=== PATIENT | female | born 1965 | race Caucasian/White ===

== ENCOUNTER 2018-09-07 15:43 | Outpatient (CLI) | payer OTHER, SELFPAY ==
--- NOTE | 2018-09-07 16:05 | DI.RAD_ITS ---
SYMPTOM/DIAGNOSIS: EVALUATE FOR BONY ABNORMALITY, NONTRAUMATIC CERVICAL RADICULOPATHY, M54.12 CERVICAL SPINE: Seven views were obtained. There is a moderate cervical kyphosis. There is mild disc space narrowing at C 4-5 and moderate disc space narrowing at C 5-6 and C 6-7. There are prominent hypertrophic changes involving the facet joints and vertebral endplates in the lower cervical region. Neural foramina not ideally evaluated but appear grossly well maintained. No other significant bony abnormality is seen. CONCLUSION: DJD of the mid to lower cervical spine as described above.
== END 2018-09-07 16:03 ==
PROVIDERS: PCP Nurse Practitioner Family; Visit Provider Nurse Practitioner Family
DX: M47.22 Other spondylosis with radiculopathy, cervical region (principal); M54.12 Radiculopathy, cervical region
CPT/HCPCS: 72050

== ENCOUNTER 2019-05-07 16:52 | Outpatient (REF) | payer OTHER, SELFPAY ==
[2019-05-07 18:31] LABS: ALT 12 U/L (12-78); AST 10 U/L (15-37); Albumin 3.7 g/dL (3.4-5.0); Alkaline Phosphatase 92 U/L (46-116); Anion Gap 9.7 mmol/L (3-11); BUN 20 mg/dL (7-18); Bilirubin, Total 0.1 mg/dL (0.2-1.0); CO2 28.3 mmol/L (21.0-32.0); CREATININE 0.79 mg/dL (0.55-1.02); Calcium 9.6 mg/dL (8.5-10.1); Chloride 105 mmol/L (98-107); Glucose 94 mg/dL (70-100); Magnesium 1.9 mg/dL (1.8-2.4); Potassium 4.2 mmol/L (3.5-5.1); Sodium 143 mmol/L (136-145); Total Protein 6.9 g/dL (6.4-8.2)
== END 2019-05-07 17:12 ==
LOC: LBO 16:52
PROVIDERS: Family Medicine; PCP Nurse Practitioner Family; Visit Provider Nurse Practitioner Family
DX: G44.009 Cluster headache syndrome, unspecified, not intractable (principal)
CPT/HCPCS: 80053; 85652; 83735

== ENCOUNTER 2019-05-08 10:34 | Outpatient (CLI) | payer OTHER, SELFPAY ==
[2019-05-08 12:18] LABS: ESR 76 MM/HR (0-30)
== END 2019-05-08 10:54 ==
PROVIDERS: PCP Nurse Practitioner Family; Visit Provider Family Medicine
DX: G44.009 Cluster headache syndrome, unspecified, not intractable (principal)
CPT/HCPCS: 36415; 85652

== ENCOUNTER 2019-05-13 01:06 | Outpatient (CLI) | payer OTHER, SELFPAY ==
--- NOTE | 2019-05-13 12:53 | DI.CT_ITS ---
SYMPTOM/DIAGNOSIS: CHANGE IN HEADACHE PATTERN, ? MASS, CLUSTER HEADACHE, 644.[address]: There are no prior comparison exams. No intracranial hemorrhage, mass or infarct is seen. There are no abnormal areas of enhancement post contrast. The ventricles are normal in size. The orbits are unremarkable as visualized. The sinuses and mastoid air cells appear clear. IMPRESSION: Negative head CT.
[2019-05-13] MEDS: Omnipaque 350 MG/ML 100 ML BTL IV (13:40)
== END 2019-05-13 01:26 ==
PROVIDERS: PCP Nurse Practitioner Family; Visit Provider Family Medicine
DX: G44.009 Cluster headache syndrome, unspecified, not intractable (principal)
CPT/HCPCS: 70470; J3490

== ENCOUNTER 2019-09-27 18:57 | Emergency (ER) | payer OTHER, SELFPAY ==
[2019-09-27 19:01] VITALS: BP 134/89; PULSE 117; RESP 16; TEMP 36.7; O2SAT 95
[2019-09-27] MEDS: Normal Saline 1,000 ML 1000 ML IV (20:03)
[2019-09-27 20:18] LABS: Abs Immature Grans 0.02 k/cumm (0.0-0.09); Absolute Basophil Count 0.04 k/cumm (0.0-0.2); Absolute Eosinophil Count 0.08 k/cumm (0.0-0.7); Absolute Lymphocyte Count 2.69 k/cumm (1.2-3.4); Absolute Monocyte Count 1.24 k/cumm (0.11-0.7); Absolute Neutrophil Count 8.05 k/cumm (1.2-6.7); Basophils % 0.3; Eosinophils % 0.7; HCT 47.6 % (36.0-46.0); HGB 16.1 g/dL (12.0-15.5); Immature Grans % 0.2; Lymphocytes % 22.2; Mean Corp. HGB Concentration 33.8 g/dL (32.0-36.0); Mean Corpuscular Hemoglobin 30.4 pg (27.0-33.0); Mean Corpuscular Volume 89.8 fL (80-95); Mean Platelet Volume 10.1 fL (8.0-11.0); Monocytes % 10.2; Neutrophils % 66.4; Platelet Count 311 x1000/uL (130-400); RBC Distribution Width 14.6 % (11.7-14.6); White Blood Cell Count 12.13 k/cumm (4.4-10.8)
[2019-09-27 20:32] LABS: ALT 21 U/L (14-59); AST 12 U/L (15-37); Albumin 3.8 g/dL (3.4-5.0); Alkaline Phosphatase 82 U/L (46-116); Anion Gap 10.5 mmol/L (3-11); BUN 13 mg/dL (7-18); Bilirubin, Total 0.2 mg/dL (0.2-1.0); CO2 25.5 mmol/L (21.0-32.0); CREATININE 0.79 mg/dL (0.55-1.02); Calcium 9.7 mg/dL (8.5-10.1); Chloride 103 mmol/L (98-107); Glucose 114 mg/dL (70-100); Lipase 69 U/L (73-393); Sodium 139 mmol/L (136-145); Total Protein 8.1 g/dL (6.4-8.2)
[2019-09-27] MEDS: Normal Saline Flush 10 ML SYR IVP (20:43)
[2019-09-27] MEDS: Omnipaque 350 MG/ML 100 ML BTL IJ (20:44)
--- NOTE | 2019-09-27 20:45 | DI.CT_ITS ---
EXAM: CT ABDOMEN PELVIS W CLINICAL HISTORY: constipation, hx volvulus and divertic TECHNIQUE: After IV and without oral contrast COMPARISON: RENAL COLIC WO CONTRAST from 09/10/2015 FINDINGS: There are diverticula seen in the descending and sigmoid colon. There is inflammation in the distal descending colon and wall thickening and stranding in the surrounding fat, consistent with diverticu litis. The sigmoid is redundant. There is inflammation around the apex of the mid sigmoid colon. N o abscess, free air or free fluid is seen. There is increased stool seen in the right side of the co angelina. There is no evidence of bowel dilatation. The appendix appears normal. The lung bases are clear. Small liver cyst is seen. The gallbladder shows a Phrygian cap. There is no biliary dilatation or gallbladder wall thickening. The spleen, adrenals and kidneys are unremar kable. The pancreas is somewhat atrophic. The aorta shows mild calcification and is normal in diame ter. Degenerative disc changes are seen at L5-S1. IMPRESSION: Uncomplicated diverticulitis of the lower descending as well as mid sigmoid colon.
--- NOTE | 2019-09-27 21:08 | DI.VRAD_ITS ---
PROCEDURE INFORMATION: Exam: CT Abdomen And Pelvis With Contrast Exam date and time: 09/27/2019 8:36 PM Clinical history: 54 years old, female; Constipation. HX volvulous and diverticulitis; Prior surgery TECHNIQUE: Imaging protocol: Computed tomography of the abdomen and pelvis with intravenous contrast. Contrast material: OMNIPAQUE 350; Contrast volume: 100 ml; Contrast route: IV 20G RAC; COMPARISON: CT ABD PELVIS WITH CONTRAST 07/11/2014 9:11 PM FINDINGS: Lungs: No acute infiltrate in either lung base. Liver: 6 mm cyst within the liver adjacent to the gallbladder fossa, otherwise normal liver. Gallbladder and bile ducts: Normal. No calcified stones. No ductal dilation. Pancreas: Normal. No ductal dilation. Spleen: Normal. No splenomegaly. Adrenals: Normal. No mass. Kidneys and ureters: Normal. No hydronephrosis. Stomach and bowel: Mural thickening of the junction of the lower descending colon / proximal sigmoid colon and also the mid sigmoid colon (coronal images 34-46). Associated scattered diverticula and infiltration / stranding of the pericolonic fat consistent with acute diverticulitis. No constantino abscess or perforation. No generalized ileus or bowel obstruction. Appendix: Normal appendix. Intraperitoneal space: Unremarkable. No free air. No significant fluid collection. Vasculature: Unremarkable. No abdominal aortic aneurysm. Lymph nodes: Unremarkable. No enlarged lymph nodes. Bladder: Unremarkable as visualized. Reproductive: Status post hysterectomy. Bones/joints: Unremarkable. No acute fracture. Soft tissues: Small fat-containing umbilical hernia. IMPRESSION: Two focal areas of acute diverticulitis - one in the mid-sigmoid colon region and the other at the junction of the lower descending colon / proximal sigmoid colon. No associated abscess or perforation. Dictated and Authenticated by: Jr Garcia MD. Ordering:AFLONZO Hilliard MD
[2019-09-27 21:20] LABS: Bilirubin Negative (Negative); Blood Moderate (Negative); Clarity Clear (Clear); Glucose Negative (Negative); Ketones Negative (Negative); Leukocyte Esterase Negative (Negative); Nitrite Negative (Negative); Urobilinogen 0.2 EU/dL (Up TO 0.2)
[2019-09-27 21:36] LABS: Bacteria Negative HPF (Negative); C & S Indicated? No; Casts Negative LPF (Negative); Crystals Negative HPF (Negative); Epithelial Cells Negative HPF (Negative); Mucus Negative (Negative); Other Cells Negative (Negative); WBC Negative HPF (0-5)
[2019-09-27 22:09] VITALS: BP 131/81; PULSE 98; RESP 18; TEMP 36.9; O2SAT 99
--- NOTE | 2019-09-28 00:12 | ED.GENADUL_ITS ---
Discharge Plan Disposition Patient Disposition: HOME Condition: Stable Discharge Details Chief Complaint: Abd Prob Clinical Impression: Diverticulitis Primary Care Provider: Shellie Ott ED Provider: Arminda Luis Home Meds and New Rx's Prescriptions: New metronidazole [Flagyl] 500 mg tablet 500 mg PO TID Qty: 30 RF: 0 ciprofloxacin HCl [Cipro] 500 mg tablet 500 mg PO BID Qty: 20 RF: 0 No Action cyclobenzaprine 10 mg tablet 10 mg PO DAILY PRN (Reason: muscle spasm) Qty: 30 RF: 0 albuterol sulfate 90 mcg/actuation HFA aerosol inhaler 1 - 2 puff IH Q4H PRN (Reason: shortness of breath or wheezing) Qty: 1 RF: 0 rizatriptan [Maxalt-MANAGEMENT AND BUDGET ANALYST] 10 mg tablet,disintegrating See Rx Instructions PO .COMPLEX Qty: 20 RF: 0 (DME) Oxygen Tank See Dose Instructions .ROUTE .MEDSUPPLY Qty: 1 RF: 0 ibuprofen 200 MG tablet 4 tab PO DAILY PRNRF: 0 triamcinolone acetonide 15 GM cream 80 gm Topical PRN Qty: 1 RF: 1 rizatriptan [Maxalt] 10 mg tablet 10 mg PO PRN Qty: 25 RF: 4 Hold Instructions: Home Medication placed on hold at Doctor's office Discharge Instructions Instructions: Diverticulitis (ED) Additional Instructions: Clear fluids for the next 2 to 3 days as discussed. Advance diet as tolerated. Rest activities as tolerated. Use antibiotic as prescribed. Your CT scan does show active diverticulitis at this time but no identified complication. Follow-up promptly with your primary care doctor for reevaluation. 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 Patient began Cipro Flagyl medication regimen which in the last 3 days has entirely relieve the pain she is experienced in the left lower quadrant however she is now having resulting constipation which significantly concerns her. Patient has a very regular bowel habitus. Patient does admit to decreased p.o. intake in the last 3 days but has been maintaining hydration by mouth. Patient also reports historically when she takes these medications she has resulting loose stools. Patient reports in addition to her history of diverticulitis she does have a history of volvulus. Patient was advised to watch for any signs of obstruction. Patient is concerned with her change in bowel habitus concern of obstruction. Patient does continue to pass gas per rectum as well as mild mucus. Denies any blood per r ectum. On exam patient has mild abdominal discomfort in the left lower quadrant as well as epigastric area. No peritoneal signs, rebound or guarding. After discussion regarding lab and imaging testing patient would prefer CT evaluation at this time. Discussed with V rad most appropriate imaging regarding CT scan with IV contrast or with IV and oral contrast. The read recommends IV contrast alone at this time given patient's presentation and concerns. Patient declines any pain medication at this time. Is feeling comfortable. Patient's vital signs remained stable. Patient remains pain-free in the emergency room. CT evaluation of the patient reveals no obvious obstructive pattern. Patient does have findings consistent with diverticulitis at the proximal sigmoid: As well as the distal colon. Patient has no sign of complications specifically no perforation or abscess. These results as well as incidentals were discussed with the patient. Patient has very mild leukocytosis noted on lab work otherwise labs are unremarkable. After discussion with the patient her preference is to discharge home at this time with continued use of antibiotics by mouth. We discussed appropriate diet regimens including clear liquids for the next 2 to 3 days. Patient agrees with plan of care. Encourage close follow-up with primary care doctor. Discussed return precautions at length. The patient was stable and requested discharge. Prior to discharge, my usual and customary return precautions were reviewed with the patient - this included follow-up instructions and reasons to return to the Emergency Department if conditions worsens, does not improve as expected, or other new concerns arise. HPI General Date/Time Provider Initiated Documentation: 09/27/19 19:19 . 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 Patient does report a history of diverticulitis which she presumed was the pain she was experiencing in the left lower quadrant therefore she began a course of Cipro and Flagyl antibiotics by mouth. Patient has been compliant with these medications for the last 3 days. Patient has had a decreased appetite and has minimal p.o. intake but has been taking fluids without difficulty. Patient reports the pain she experienced 3 days ago has significantly improved in fact resolved. Patient denies associated fever, chills. Denies nausea or vomiting. Patient does admit to constipation. Is passing gas and some mucus per rectum. Denies passing any blood per rectum. Patient is concerned as she has very regular bowel movements and with the pain associated with constipation she is concerned as she did also have a history of volvulus in the past and wanted to be sure that she was treating her pain appropriately. Related Data Home Medications Medication Instructions Recorded Confirmed ibuprofen 4 tab PO DAILY PRN 01/31/13 09/27/19 triamcinolone acetonide 80 gm TOPICAL PRN #1 tube 04/10/14 09/27/19 albuterol sulfate 90 mcg/actuation 1 - 2 puff IH Q4H PRN #1 device 09/07/18 09/27/19 aerosol inhaler cyclobenzaprine 10 mg tablet 10 mg PO DAILY PRN #30 tab 09/07/18 09/27/19 rizatriptan 10 mg tablet 10 mg PO PRN #25 tab 04/29/19 09/27/19 rizatriptan 10 mg disintegrating See Rx Instructions PO .COMPLEX 05/07/19 09/27/19 tablet #20 tab Oxygen #1 each 05/29/19 09/27/19 ciprofloxacin HCl [Cipro] 500 mg PO BID #20 tab 09/27/19 metronidazole [Flagyl] 500 mg PO TID #30 tab 09/27/19 Previous Rx's Medication Instructions Recorded albuterol sulfate 90 mcg/actuation 1 - 2 puff IH Q4H PRN #1 device 09/07/18 aerosol inhaler cyclobenzaprine 10 mg tablet 10 mg PO DAILY PRN #30 tab 09/07/18 rizatriptan 10 mg tablet 10 mg PO PRN #25 tab 04/29/19 rizatriptan 10 mg disintegrating See Rx Instructions PO .COMPLEX 05/07/19 tablet #20 tab Oxygen #1 each 05/29/19 ciprofloxacin HCl [Cipro] 500 mg PO BID #20 tab 09/27/19 metronidazole [Flagyl] 500 mg PO TID #30 tab 09/27/19 Allergies Allergy/AdvReac Type Severity Reaction Status Date / Time sumatriptan succinate AdvReac Severe double Unverified 09/27/19 19:06 [From Imitrex] vision bleach Allergy Severe rash Uncoded 09/27/19 19:06 adhesive tape Allergy Mild redness/maria victoria Uncoded 09/27/19 19:06 h General Stated Complaint: Abd Prob WILLIE: 3 Review of Systems All systems reviewed & are unremarkable except as noted in HPI and below Constitutional Constitutional: Denies chills, Denies fatigue, Denies fever(s), Denies headache(s) and Denies malaise ENT Ears, Nose, Mouth, and Throat: Denies headache(s) Gastrointestinal Gastrointestinal: Reports abdominal pain (Resolved), Denies belching, Denies bloating, Reports constipation, Denies nausea and Denies vomiting Genitourinary Genitourinary: Denies dysuria, Denies urinary hesitancy and Denies urinary urgency Neurologic Neurologic: Denies headache(s) Endocrine Endocrine: Denies fatigue [facility] Medical History Cigarette nicotine dependence without complication (Acute 08/14/17) Depression (Chronic 01/31/13) Diverticulitis (Resolved 09/09/14) Fibroadenoma of breast (Acute 01/31/13) Hypercholesterolemia (Chronic 01/31/13) PCEq 5.8%; LDL baseline 137 Migraine (Chronic 01/31/13) Peroneal tendonitis of right lower leg (Resolved 11/24/16) Surgical History Abdominal hysterectomy Oophrectomy, Left Oophrectomy, Right RGT SALIVARY GL EX. Venous radiofrequency ablation (02/17/15) Left greater saphenous vein. Dr. Donta Henry Social History Smoking/Tobacco Use Status: Current every day Tobacco Type: cigarettes Alcohol Intake: current Alcohol Intake frequency: holidays/special occasions only Drug use: Never Substance use type: does not use Household members: significant other Number of Children: 1 current occupation: Nurse Pets and animals: Yes Pets and animals: dog(s) What type of physical activity do you participate in: none Do you feel safe at home: Yes Do you feel safe in your relationship?: Yes Exam Narrative Exam Narrative: CONST: Healthy appearing patient, in no acute distress. Well hydrated. Alert and alert. NECK: Normal visual inspection. FROM. No lymphadenopathy. Trachea midline. No Midline tenderness. CHEST: Normal insepection of the chest. RESP: Normal respiratory effort. Speaking full sentences. No cough. No wheezing. No retractions. Clear to auscaltation. Breath sound equal and present bilaterally. CARDIO: No JVD. Normal PMI. Regular Rate. Regular Rhythm. Normal peripheral pulses. GI: Normal inspection of abdomen. No distension. Soft. Mild epigastric and left lower quadrant abdominal pain with palpation. Minimal tenderness on exam. Bowel sounds present in all 4 quadrants. No rebound. No gaurding. MUSCULOSKELETAL: Normal Gait. FROM of all extremities. Distal neurovascularly intact. Sensation intact distally. SKIN: Normal. Dry. No rashes. NEURO: Alert and awake. Speech clear. PSYCH: Normal affect. Cooperative. Course Vital Signs Vital signs: Vital Signs Temperature 36.7 C 09/27/19 19:01 Pulse 117 H 09/27/19 19:01 Respiratory Rate 16 09/27/19 19:01 Blood Pressure 134/89 09/27/19 19:01 Pulse Oximetry 95 09/27/19 19:01 Temperature 36.9 C 09/27/19 22:09 Temperature Source Temporal Artery Scan 09/27/19 19:01 Pulse 98 H 09/27/19 22:09 Respiratory Rate 18 09/27/19 22:09 Respiratory Effort Non-Labored 09/27/19 19:05 Blood Pressure 131/81 09/27/19 22:09 Blood Pressure Position Sitting 09/27/19 19:01 Pulse Oximetry 99 09/27/19 22:09 Oxygen Delivery Method Room Air 09/27/19 19:01 Oxygen Flow Rate 0 09/27/19 19:01 Pain Level 0 09/27/19 22:09 Lab/Test Results Lab/Test Results: Laboratory Tests Range/Units 09/27/19 09/27/19 09/27/19 20:10 20:10 20:45 WBC (4.4-10.8) k/cumm 12.13 H RBC (4.00-5.20) m/cumm 5.30 H Hgb (12.0-15.5) g/dL 16.1 H Hct (36.0-46.0) % 47.6 H MCV (80-95) fL 89.8 MCH (27.0-33.0) pg 30.4 MCHC (32.0-36.0) g/dL 33.8 RDW (11.7-14.6) % 14.6 Plt Count (130-400) x1000/uL 311 MPV (8.0-11.0) fL 10.1 Immature Gran % 0.2 Neutrophils % 66.4 Lymphocytes % 22.2 Monocytes % 10.2 Eosinophils % 0.7 Basophils % 0.3 Absolute Neutrophils (1.2-6.7) k/cumm 8.05 H Absolute Lymphocytes (1.2-3.4) k/cumm 2.69 Absolute Monocytes (0.11-0.7) k/cumm 1.24 H Absolute Eosinophils (0.0-0.7) k/cumm 0.08 Absolute Basophils (0.0-0.2) k/cumm 0.04 Sodium (136-145) mmol/L 139 Potassium (3.5-5.1) mmol/L 4.0 Chloride (98-107) mmol/L 103 Carbon Dioxide (21.0-32.0) mmol/L 25.5 Anion Gap (3-11) mmol/L 10.5 BUN (7-18) mg/dL 13 Creatinine (0.55-1.02) mg/dL 0.79 Estimated GFR/1.73 m2 (mL/min/1.73m2) >= 60.00 Glucose (70-100) mg/dL 114 H Calcium (8.5-10.1) mg/dL 9.7 Total Bilirubin (0.2-1.0) mg/dL 0.2 AST (15-37) U/L 12 L ALT (14-59) U/L 21 Alkaline Phosphatase (46-116) U/L 82 Total Protein (6.4-8.2) g/dL 8.1 Albumin (3.4-5.0) g/dL 3.8 Lipase (73-393) U/L 69 L Urine Color (Yellow) Yellow Urine Clarity (Clear) Clear Urine pH (5-8) 7.0 Ur Specific [place] (1.005-1.025) 1.010 Urine Protein (Negative) mg/dL 100 H Urine Ketones (Negative) mg/dL Negative Urine Blood (Negative) Moderate H Urine Nitrite (Negative) Negative Urine Bilirubin (Negative) Negative Urine Urobilinogen (Up TO 0.2) EU/dL 0.2 Ur Leukocyte Esterase (Negative) Negative Urine RBC (0-2) 10-20 H Urine WBC (0-5) HPF Negative Ur Epithelial Cells (Negative) HPF Negative Urine Crystals (Negative) HPF Negative Urine Bacteria (Negative) HPF Negative Urine Casts (Negative) LPF Negative Urine Mucus (Negative) Negative Urine Other (Negative) Negative Ur Culture Indicated? No Urine Glucose (Negative) mg/dL Negative
== END 2019-09-27 22:15 | disposition home or self-care (01) ==
PROVIDERS: Emergency Provider Physician Assistant; PCP Nurse Practitioner Family
DX: K57.32 Diverticulitis of large intestine without perforation or abscess without bleeding (principal)
CPT/HCPCS: 80053; 83690; 96360; 99285; 74177; 81003; 81015; 85025; 99284; J3490

== ENCOUNTER 2022-12-12 13:50 | Outpatient (CLI) | payer OTHER, SELFPAY ==
--- NOTE | 2022-12-12 13:30 | DI.RAD_ITS ---
Exam(s) XR KNEE RT 4V AP,LAT,DANIEL,PAT EXAM: XR KNEE RT 4V AP,LAT,DANIEL,PAT CLINICAL HISTORY: right knee pain. TECHNIQUE: 2D digital imaging was performed of the right knee. Four views obtained. Merchant, AP, la teral and PA tunnel views were obtained. COMPARISON: No exams were available for comparison FINDINGS: BONES: No acute fracture is present. No bony destructive lesion is seen. JOINTS: The knee is normally aligned. There is a small joint effusion. SOFT TISSUE: Normal. IMPRESSION: Small joint effusion. DATA REPOSITORY: RADIATION DOSE DELIVERED:
== END 2022-12-12 13:51 | disposition home or self-care (01) ==
LOC: DIORS 13:50
PROVIDERS: PCP Nurse Practitioner Family; Referring Provider Nurse Practitioner Family; Visit Provider Physician Assistant
DX: M25.461 Effusion, right knee (principal)
CPT/HCPCS: 73564

== ENCOUNTER 2023-01-05 01:18 | Outpatient (CLI) | payer OTHER, SELFPAY ==
--- NOTE | 2023-01-05 10:30 | DI.MRI_ITS ---
Exam(s) MR LOWER JOINT RT WO EXAM: MR LOWER JOINT RT WO CLINICAL HISTORY: PAIN M23.91 INTERNAL DERANGEMENT RT KNEE TECHNIQUE: Multiplanar multisequence MRI of the knee was performed. COMPARISON: CR XR KNEE RT 4V AP,LAT,DANIEL,PAT from 12/12/2022 FINDINGS: EFFUSION: There is a moderate size knee joint effusion. No Duff cyst in the popliteal fossa. MARROW:There is no evidence of fracture, bone contusion, nor osteochondral defects.. There are no si gnificant osseous lesions. PATELLOFEMORAL COMPARTMENT: There is abundant subcutaneous edema anterior to the lower half of the patella and entire length of t he patellar ligament but no evidence of a 2 sure in tear of the patellar ligament. No distinct fluid collection in the subcutaneous tissues. The quadriceps tendon is intact. The patellar ligament is intact. There is no significant thinning of the retropatellar cartilage. No evidence of fissure nor signific ant chondral defect. No osteochondral defect at this level.There is no intraosseous signal to sugges t recent patellar dislocation. There are no patellar retinacular tears. CRUCIATE LIGAMENTS: There is some signal abnormality in the anterior cruciate ligament but no high-gr cortes tear evident.The posterior cruciate ligament is intact. MEDIAL COMPARTMENT/MEDIAL MENISCUS: Mild increased signal in the posterior horn of the medial meniscu s but no tear. Meniscal root is intact. No significant meniscal extrusion but there is an element o f meniscocapsular separation well signal abnormality within the medial collateral ligament internal a spect consistent with significant sprain of this structure.The anterior horn of the medial meniscus a ppears unremarkable. Meniscal root is intact.. There are no chondral defects, osteochondral defects, subarticular marrow edema, nor osteophytes evid ent. MEDIAL COLLATERAL LIGAMENT: Abnormal findings as above. LATERAL COMPARTMENT/LATERAL MENISCUS: There is no evidence of lateral meniscal tear.There are no neva dral defects, osteochondral defects, subarticular marrow edema, nor osteophytes evident. ILIOTIBIAL BAND: Intact LATERAL COLLATERAL LIGAMENT COMPLEX: The fibular collateral ligament is intact. The biceps femoris t endon is intact.Popliteus muscle and tendon are intact. IMPRESSION: 1. No meniscal tears evident. 2. There is signal abnormality in the inner aspect of the medial collateral ligament consistent with an element of brain of this structure. No full-thickness tear. The lateral collateral ligament comp jhoana is intact.. 3. Some increased signal noted in the anterior cruciate ligament but without significant high-grade t ear of this structure. PCL is intact. 4. Subcutaneous edema anterior to the patella and patellar ligament. However, there is no evidence o f tear of the patellar ligament nor bone contusion in the patella nor chondromalacia patella. 5. There is a knee joint effusion evident with some synovial thickening evident in the suprapatellar bursa. No loose intra articular bodies. No osteochondral defects. No obvious osteoarthritic degen erative changes. DATA REPOSITORY:
== END 2023-01-05 01:38 ==
LOC: DI 01:18
PROVIDERS: PCP Nurse Practitioner Family; Visit Provider Student in an Organized Health Care Education/Training Program
DX: M25.461 Effusion, right knee (principal)
CPT/HCPCS: 73721

== ENCOUNTER 2023-02-14 12:31 | Day surgery (SDC) | payer OTHER, SELFPAY ==
[2023-02-14 12:36] VITALS: BP 124/82; PULSE 94; RESP 18; TEMP 37.1; O2SAT 94
[2023-02-14] MEDS: Lactated Ringers 1,000 ML 80 ML IV (13:09)
--- NOTE | 2023-02-14 13:13 | PDOC.DSDIS_ITS ---
Date of service: 02/14/23 Time of Service: 13:16 Discharge Plan Disposition Patient Disposition: Home Condition: Good Discharge Details Reason For Visit: Right knee internal derangement and synovitis Attending Provider: Kannan Cruz Primary Care Provider: Shellie Ott Home Meds and New Rx's Prescriptions: New acetaminophen 500 mg tablet 1,000 mg PO Q8H PRN Qty: 90 0RF Rx Instructions: Take two tablets up to every 8 hours as needed for pain ibuprofen 600 mg tablet 600 mg PO TID PRN (Reason: pain) Qty: 60 0RF ondansetron 4 mg tablet,disintegrating 4 mg PO Q8H PRNQty: 6 0RF hydrocodone-acetaminophen 5-325 mg tablet 1 tab PO Q6H PRN (Reason: severe pain) Qty: 10 0RF Rx Instructions: Take one tablet up to every 6 hours as needed for severe postoperative pain Continued cyclobenzaprine 10 mg tablet 10 mg PO DAILY PRN (Reason: muscle spasm) Qty: 30 0RF albuterol sulfate 90 mcg/actuation HFA aerosol inhaler 1 - 2 puff IH Q4H PRN (Reason: shortness of breath or wheezing) Qty: 1 0RF Patient Comments: pt has not replaced this, out of medication Rx Instructions: Dispense brand of albuterol inhaler covered by patient's insurance rizatriptan [Maxalt-CERTIFIED COMPOSITES TECHNICIAN] 10 mg tablet,disintegrating See Rx Instructions PO .COMPLEX Qty: 20 0RF Dose Instruction: take 1 tab at onset of headache; if no relief may repeat 1 tab in 2hr; max = 3 tabs/day (24hr) PO Rx Instructions: take 1 tab at onset of headache; if no relief may repeat 1 tab in 2hr; max = 3 tabs/day (24hr) PO (DME) Oxygen Tank See Dose Instructions .ROUTE .MEDSUPPLY Qty: 1 0RF Dose Instruction: As directed Rx Instructions: 12L/min x 15 min triamcinolone acetonide 15 GM cream 80 gm Topical PRN Qty: 1 rizatriptan [Maxalt] 10 mg tablet 10 mg PO PRN Qty: 25 4RF Hold Instructions: Home Medication placed on hold at Doctor's office Rx Instructions: Take 1 tab at first sign of migraine, may repeat x1 after 2 hours. Dx: Migraines nystatin 100,000 unit/mL suspension 1 ml BC QID Qty: 60 0RF Rx Instructions: wish adn spit QID x 7 days if develop thrush Probiotic 3 billion cell Capsule 1 PO PRN PRN Discontinued ibuprofen 200 MG tablet 4 tab PO DAILY PRN Rx Instructions: for migraine acetaminophen 500 mg Tablet 500 mg PO PRN PRN Discharge Instructions Stand Alone Forms: [facility]th[facility] Referrals: Kannan Cruz MD [ [facility] STAFF PHYSICIAN] - Equipment/Supplies: Partial Weight Bearing Crutches Activity:: Elevate Remove Dressings/Wound Care:: 48 hours Shower/Bathe:: 48 hours Diet:: As Tolerated Discharge Orders Discharge Orders: Discharge Order (Routine); Ordered 02/14/23 Ordered By: Nicolasa Ponce
[2023-02-14] MEDS: Celecoxib 200 MG CAP 400 MG PO (13:18)
[2023-02-14] MEDS: Acetaminophen 500 MG TAB 1000 MG PO (13:18)
--- NOTE | 2023-02-14 13:22 | W.ANESPRE ---
General Info Date of Service Date Performed: 02/14/23 Height: 5 ft 7 in Weight: 97.4 kg Body Mass Index (BMI): 33.6 Surgical Procedure: Operation Date: 02/14/23 15:10 Proposed Procedure Side Surgeon p Knee Arthroscopy, Synovectomy Right Kannan Cruz MD Meds Allergies and Home Medications Allergies Allergy/AdvReac Type Severity Reaction Status Date / Time sumatriptan succinate AdvReac Severe double Unverified 02/14/23 12:55 [From Imitrex] vision bleach Allergy Severe rash Uncoded 02/14/23 12:55 adhesive tape Allergy Mild redness/maria victoria Uncoded 02/14/23 12:55 h Home Medication Medication Instructions Recorded triamcinolone acetonide 0.1 % 80 gm topical PRN #1 tube 04/10/14 topical cream albuterol sulfate 90 mcg/actuation 1 - 2 puff inhalation Q4H PRN 09/07/18 aerosol inhaler shortness of breath or wheezing #1 device cyclobenzaprine 10 mg tablet 10 mg PO DAILY PRN muscle spasm 09/07/18 #30 tabs rizatriptan 10 mg tablet (Maxalt) 10 mg PO PRN #25 tabs 04/29/19 rizatriptan 10 mg disintegrating See Rx Instructions PO .COMPLEX 05/07/19 tablet (Maxalt-BASKETBALLS [employer] FOOTBALLS REVERSER) #20 tabs Oxygen #1 ea 05/29/19 nystatin 100,000 unit/mL oral 1 ml buccal QID #60 mL 04/03/20 suspension acetaminophen 500 mg tablet 1,000 mg PO Q8H PRN pain #90 tabs 02/14/23 hydrocodone 5 mg-acetaminophen 325 1 tab PO Q6H PRN severe pain #4 02/14/23 mg tablet tabs ibuprofen 600 mg tablet 600 mg PO TID PRN pain #60 tabs 02/14/23 lactobacillus combination no.4 3 1 PO PRN PRN 02/14/23 billion cell capsule (Probiotic) Current Visit Medications: Current Medications Generic Name Dose Route Start Last Admin Trade Name Freq PRN Reason Stop Dose Admin Acetaminophen 1,000 mg 02/14/23 06:00 02/14/23 13:18 Acetaminophen 500 Mg Tab PO 02/14/23 16:00 1,000 mg PREOP ELVIN Administration Acetaminophen 650 mg 02/14/23 13:12 Acetaminophen 325 Mg Tab PO Q4H PRN PRN Hydrocodone Bitart/Acetaminophen 0 tab 02/14/23 13:12 Hydrocodone 5/Acetaminophen 325 Tab PO Q3H PRN PRN Pain Celecoxib 400 mg 02/14/23 06:00 02/14/23 13:18 Celecoxib 200 Mg Cap PO 02/14/23 16:00 400 mg PREOP ELVIN Administration Ringer's Solution 1,000 mls @ 80 mls/hr 02/14/23 06:00 02/14/23 13:09 IV 03/15/23 23:59 80 mls/hr INFUSION ELVIN Administration Cefazolin Sodium/Dextrose 2 gm in 50 mls @ 100 mls/hr 02/14/23 06:00 Ancef Duplex IVPB 03/15/23 23:59 PREOP ELVIN IV Miscellaneous Supplies 1 each 02/14/23 06:00 Iv Access IV 03/15/23 23:59 DIRECTED ELVIN Sodium Chloride 0 ml 02/14/23 06:00 Normal Saline Flush 10 Ml Syr IV 03/15/23 23:59 PRN PRN Sodium Chloride 0 ml 02/14/23 06:00 Normal Saline 10 Ml Vial IJ 03/15/23 23:59 DIRECTED PRN Sterile Water 0 ml 02/14/23 06:00 Water,Injection,Sterile 10 Ml Vial IJ 03/15/23 23:59 DIRECTED PRN PFSH Active Problems Active Problems: Problem Status Onset Code Arthritis of right ankle 11/24/16 M19.071 Cigarette nicotine dependence without complication 08/14/17 F17.210 Fibroadenoma of breast 01/31/13 D24.9 Hypercholesterolemia 01/31/13 E78.00 Migraine 01/31/13 G43.909 Depression 01/31/13 F32.9 Encounter for screening for other viral diseases Z11.59 Internal derangement of right knee M23.91 Synovitis of right knee M65.9 Medical History Medical History Diverticulitis (09/09/14) Peroneal tendonitis of right lower leg (11/24/16) Surgical History Surgical History (Updated 02/14/23 @ 12:55 by Ella Rainey RN) Abdominal hysterectomy H/O colonoscopy Oophrectomy, Left Oophrectomy, Right RGT SALIVARY GL EX. Venous radiofrequency ablation (02/17/15) Left greater saphenous vein. Dr. Donta Henry Tobacco Smoking/Tobacco Use Status: Current every day Tobacco Type: cigarettes Smoking cigarettes per day: 30 Alcohol Alcohol Intake: current Alcohol intake frequency: holidays/special occasions only Substance Use Substance use: Never Substance use type: does not use Vital Signs and Lab Results Vital Signs Most Recent Vital Signs in EMR: Most Recent Vital Signs Temp Pulse Resp BP Pulse Ox 37.1 C 94 H 18 124/82 94 02/14/23 12:36 02/14/23 12:36 02/14/23 12:36 02/14/23 12:36 02/14/23 12:36 Lab Results Blood Type / Crossmatch: No Data to Display Complete Blood Count: No Data to Display Complete Metabolic Panel: No Data to Display Liver Function Panel: No Data to Display Coagulation Panel: No Data to Display Cardiac Panel: No Data to Display Arterial Blood Gas: No Data to Display Venous Blood Gas: No Data to Display Pancreas Panel: No Data to Display Thyroid Panel: No Data to Display Infectious Disease: No Data to Display Blood Cultures: No Data to Display Toxicology Panel: No Data to Display Anesthesia Assessment and Plan Anesthesia History Personal History: PONV Family History: No Family History of Anesthesia Complications Exercise Tolerance Exercise Tolerance: Metabolic Equivalents>4 Pertinent Negatives Pertinent Negatives: No Symptoms of GERD, No Major Cardiovascular Symptoms or Complaints and No Major Pulmonary Symptoms or Complaints Cardiac & Pulmonary Exam Cardiac Exam: Normal S1/S2 Heart Sounds Pulmonary Exam: Clear Bilateral Breath Sounds Implantable Cardiac Device Does patient have a Pacemaker or an ICD?: No Airway Exam Known Difficult Airway: No Mallampati Class: 1 Mouth Opening: Normal (> 3cm) Thyromental Distance: Greater than 3 cm Neck Range of Motion: Full ROM Neck Circumference: Normal Teeth Condition: Normal Dentition ASA Classification ASA Score: ASA 2 Emergency Case?: No NPO Status NPO Status: NPO Clears >2 hours, Solids >8 hours Anesthesia Plan Resuscitation Status: Full Code Anesthesia Technique: General Anesthesia Airway Planned: LMA Monitors Used: Standard Monitors
[2023-02-14 13:26] VITALS: BMI 33.6
[2023-02-14] MEDS: ceFAZolin 2 GM/50 ML BAG IVPB (14:29)
[2023-02-14] MEDS: Bupivacaine 0.5% Pres-Free 30 ML VIAL (14:50)
[2023-02-14] MEDS: EPINEPHrine 30 MG/30 ML VIAL (14:50)
[2023-02-14 15:12] VITALS: BP 81/45; PULSE 75; RESP 16; TEMP 36; O2SAT 98
[2023-02-14 15:17] VITALS: BP 87/46; PULSE 74; RESP 14; TEMP 36; O2SAT 94
--- NOTE | 2023-02-14 15:30 | W.ANESPOSTOP ---
Postoperative Evaluation Date, Time and Location Date Performed: 02/14/23 Time Performed: 15:30 Patient Location: PACU Vital Signs Most Recent Imported Vital Signs: Most Recent Vital Signs Temp Pulse Resp BP Pulse Ox 36.0 C L 74 14 87/46 L 94 02/14/23 15:17 02/14/23 15:17 02/14/23 15:17 02/14/23 15:17 02/14/23 15:17 Pain Score Most Recent Pain Score: Most Recent Pain Score Pain Level 0 02/14/23 15:17 Assessment Mental Status: Awake (Alert & Oriented to Patient Baseline) Airway and Respiratory Function: Patent airway with normal (patient baseline) respiratory exam Cardiovascular Function: Hemodynamically Stable Hydration Status: Adequately Hydrated Nausea & Vomiting: No Nausea or Vomiting Pain: Pt. Denies Any Pain Peripheral Nerve Block: Patient did not receive a nerve block
[2023-02-14 15:32] VITALS: BP 90/52; PULSE 72; RESP 16; TEMP 36.6; O2SAT 94
[2023-02-14 15:50] VITALS: BP 118/69; PULSE 76; RESP 20; TEMP 36.2; O2SAT 94
--- NOTE | 2023-02-14 16:10 | ROE_ITS ---
Date of service: 02/14/23 Time of Service: 15:15 Operative Note Operative Note DATE OF PROCEDURE: 02/14/23 PRE-OP DIAGNOSIS: Right Knee Internal Derangement POST-OP DIAGNOSIS: other (Right Knee Synovial Chondromatosis) PROCEDURE: Right knee arthroscopic synovectomy, limited, with removal of loose bodies SURGEON: Kannan Cruz ANESTHESIA TYPE: General LMA/ETT Refer to Anesthesia Record ESTIMATED BLOOD LOSS: 0 PATHOLOGY: none sent COMPLICATIONS: None Patient was transported to: PACU Patient's condition: stable Indications: I have seen Alissa in clinic for symptoms of knee pain and catching, presumed internal derangement. TNonoperative measures were exhausted but disability and pain persisted. I discussed knee arthroscopy with meniscal intervention with the patient. I reviewed the risks of the procedure to include, but not limited to, bleeding, infection, pain, stiffness, damage to nerves or vessels, recurrence, blood clot. Despite these risks, the patient elected to proceed. Findings: A diagnostic arthroscopy was performed with the following findings: Suprapatellar Pouch: Moderate inflammatory change with multiple chondral, small smooth white, loose bodies Medial Compartment: No medial meniscal tear, Intact meniscal root, focal areas of grade I/II chondromalacia within the central portion no more than 2 to 3 mm in width, abundant chondral loose bodies Notch: ACL and PCL were intact Lateral Compartment: Minor fraying of the central portion of the posterior meniscus, Intact meniscal root, No significant chondromalacia or signs of arthritis, multiple chondral loose bodies Patellofemoral Compartment: No significant chondromalacia, No apparent patellar maltracking Procedure Description: Alissa was greeted in the preoperative holding area where the correct side was identified and marked. The consent was reviewed with the patient and signed. The history and physical was updated. All questions were answered. She was taken back to the operating room. The patient was placed into the supine position on the operating room table. All bony prominences were well padded. Prophylactic antibiotics in the form of Cefazolin were administered. The right leg was then prepped with Chloraprep and draped in a standard fashion with stockinette and extremity drape. A timeout to confirm correct identity, side and site, procedure, allergies, anesthesia, and medical concerns was performed. The leg was placed into a pneumatic leg carrasco, [id number]. A standard lateral portal was made at the lateral border of the patella tendon in line with the inferior pole of the patella, soft spot. The skin and deep tissue was incised sharply and the blunt trochar was inserted atraumatically. A diagnostic arthroscopy was performed and the findings are listed above. The suprapatellar pouch had moderate inflammatory change with abundant amounts of chondral loose bodies. The patellofemoral articulation showed no articular damage as well as good tracking. To improve visualization I proceeded to the medial side of the knee and placed a medial portal with spinal needle localization. Once this was then placed I utilized a shaver back in the suprapatellar space to remove the chondral loose bodies. A limited synovectomy was also performed in the suprapatellar space of all diseased or hypertrophic appearing synovium. I then evaluated the lateral gutter. The lateral gutter had multiple chondral loose bodies and the medial gutter had similar findings. The knee was brought into some valgus stress in extension to open the medial compartment. A probe was then inserted into the medial compartment. The medial compartment was fully inspected. The chondral surface of the tibia showed a very small area of grade I/II chondromalacia within the central tibia and the surface of the femur showed minimal grade I chondromalacia. The medial meniscus had no meniscal tear. There were multiple loose bodies around the meniscus posteriorly and medially. The shaver was placed into the medial compartment and on suction removed all visible loose bodies probing with the shaver in the posterior aspect of the knee along with manipulation of the posterior aspect of the knee manually. Once it appeared that these loose bodies have been fully removed I proceeded onto the lateral aspect of the knee. The notch was then inspected which showed an intact ACL and an intact PCL. Once again, there were some loose bodies seen within the notch as well. There was an abundant amount of infrapatellar fat in this region. It was quite dense and instructed view. Given her anterior based symptoms I did resect a portion of t his such as able to easily see across from medial to lateral without any interposed fat or tissue. The leg was then brought into a figure of 4 position. The lateral compartment was fully inspected with the arthroscope and a probe. The chondral surface of the lateral femur showed no significant chondromalacia. The chondral surface of the lateral tibia showed no significant chondromalacia. The lateral meniscus had some minor fraying of the central portion of the posterior lateral meniscus with an intact root. I smoothed the fraying down with a shaver but then focused my attention on the multiple loose bodies once again encountered within this lateral compartment. The posterior aspect of the compartments explored with the shaver as long with manual pressure in the posterior knee to hopefully expose and remove any loose bodies with suction through the shaver. The arthroscope was brought back into the suprapatellar pouch and the leg was in full extension. The knee was thoroughly irrigated with the arthroscopic fluid on high flow and pressure and the shaver on suction. There is no more loose bodies identified nor flowing into the shaver. Inflow was stopped and excess fluid was removed. The wounds were closed with 4-0 Nylon. They were dressed with Xeroform, 4x4 gauze, ABD pad, Kerlix and an KYM wrap. A cryo-cuff was applied. The patient tolerated the procedure well and was taken to the PACU in a stable condition suffering no known complication.
[2023-02-14 16:14] VITALS: BP 122/69; PULSE 78; RESP 20; TEMP 36.1; O2SAT 94
--- NOTE | 2023-02-14 17:45 | NUR.NOTE ---
1738: contacted this nurse regarding ASA 81 and DC instructions. said up to pt, 50% say it reduces clot risk, 50% say it makes no difference. If pt. wants to be extra careful, go ahead This nurse called pt's home and passed that message along chad to give to Alissa.Delma Note:
== END 2023-02-14 16:47 | disposition home or self-care (01) ==
PROVIDERS: PCP Nurse Practitioner Family; Visit Provider Student in an Organized Health Care Education/Training Program
PROC: (CPT 29870; principal; 2023-02-14 15:00)
DX: M65.861 Other synovitis and tenosynovitis, right lower leg (principal); M94.261 Chondromalacia, right knee; M23.41 Loose body in knee, right knee
CPT/HCPCS: 29875; J0690; J1100; J2405; J2704

== ENCOUNTER 2023-12-18 15:48 | Outpatient (CLI) | payer OTHER, SELFPAY ==
--- NOTE | 2023-12-18 13:15 | DI.RAD_ITS ---
Exam(s) XR WRIST LT COMPLETE EXAM: XR WRIST LT COMPLETE CLINICAL HISTORY: L wrist mass. TECHNIQUE: 2D digital imaging was performed of the left wrist. Three images were obtained. PA, obl ique and lateral views were obtained. COMPARISON: No exams were available for comparison FINDINGS: BONES: No acute fracture is present. No bony destructive lesion is seen. There is a well corticated o sseous density at the tip of the ulnar styloid process which appears old. JOINTS: The carpal bones are normally aligned. The joint spaces are well maintained. SOFT TISSUE: There is soft tissue swelling of the dorsum of the distal forearm. There is a question of a almost 1 cm soft tissue nodule in the subcutaneous tissues posterior to the distal radius and ul na. Please correlate with the patient's palpable abnormality. (This is best appreciated on image 3) . IMPRESSION: Question of a 1 cm nodule in the posterior soft tissues of the distal forearm. Please correlate with the patient's palpable abnormality. MRI or ultrasound may be obtained for further evaluation. DATA REPOSITORY: RADIATION DOSE DELIVERED:
== END 2023-12-18 15:49 | disposition home or self-care (01) ==
LOC: DIORS 15:49
PROVIDERS: PCP Nurse Practitioner Family; Visit Provider Physician Assistant
DX: R22.30 Localized swelling, mass and lump, unspecified upper limb (principal)
CPT/HCPCS: 73110

== ENCOUNTER 2023-12-27 13:35 | Day surgery (SDC) | payer OTHER, SELFPAY ==
[2023-12-27 14:02] VITALS: BP 122/80; PULSE 90; RESP 16; TEMP 36.6; O2SAT 96
[2023-12-27] MEDS: Lactated Ringers 1,000 ML 80 ML IV (14:05)
--- NOTE | 2023-12-27 14:22 | W.ANESPRE ---
General Info Date of Service Date Performed: 12/27/23 Height: 5 ft 7 in Weight: 97.522 kg Body Mass Index (BMI): 33.6 Surgical Procedure: Operation Date: 12/27/23 15:10 Proposed Procedure Side Surgeon p Wrist Biopsy Excision of Mass Left Kannan Cruz MD Meds Allergies and Home Medications Allergies Allergy/AdvReac Type Severity Reaction Status Date / Time sumatriptan succinate AdvReac Severe double Unverified 12/27/23 13:59 [From Imitrex] vision bleach Allergy Severe rash Uncoded 12/27/23 13:59 adhesive tape Allergy Mild redness/maria victoria Uncoded 12/27/23 13:59 h Home Medication Medication Instructions Recorded triamcinolone acetonide 0.1 % 80 gm topical PRN #1 tube 04/10/14 topical cream albuterol sulfate 90 mcg/actuation 1 - 2 puff inhalation Q4H PRN 09/07/18 aerosol inhaler shortness of breath or wheezing #1 device nystatin 100,000 unit/mL oral 1 ml buccal QID #60 mL 04/03/20 suspension acetaminophen 500 mg tablet 1,000 mg (2 x 500 mg) PO Q8H PRN 02/14/23 pain #90 tabs ibuprofen 600 mg tablet 600 mg PO TID PRN pain #60 tabs 02/14/23 lactobacillus combination no.4 3 1 cell PO PRN PRN 02/14/23 billion cell capsule (Probiotic) ondansetron 4 mg disintegrating 4 mg PO Q8H PRN #6 tabs 02/14/23 tablet Oxygen #1 ea 06/09/23 cyclobenzaprine 10 mg tablet 10 mg PO DAILY PRN muscle spasm 06/09/23 #30 tabs rizatriptan 10 mg disintegrating See Rx Instructions PO .COMPLEX 07/26/23 tablet (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) #20 tabs Current Visit Medications: Current Medications Generic Name Dose Route Start Last Admin Trade Name Freq PRN Reason Stop Dose Admin Ringer's Solution 1,000 mls @ 80 mls/hr 12/27/23 06:00 12/27/23 14:05 IV 01/25/24 23:59 80 mls/hr INFUSION ELVIN Administration Cefazolin Sodium/Dextrose 2 gm in 50 mls @ 100 mls/hr 12/27/23 06:00 Ancef Duplex IVPB 01/25/24 23:59 PREOP ELVIN IV Miscellaneous Supplies 1 each 12/27/23 06:00 Iv Access IV 01/25/24 23:59 DIRECTED ELVIN Sodium Chloride 0 ml 12/27/23 06:00 Normal Saline Flush 10 Ml Syr IV 01/25/24 23:59 PRN PRN Sodium Chloride 0 ml 12/27/23 06:00 Normal Saline 10 Ml Vial IJ 01/25/24 23:59 DIRECTED PRN Sterile Water 0 ml 12/27/23 06:00 Water,Injection,Sterile 10 Ml Vial IJ 01/25/24 23:59 DIRECTED PRN PFSH Active Problems Active Problems: Problem Status Onset Code Mass of left wrist R22.32 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 Venous radiofrequency ablation (02/17/15) Left greater saphenous vein. Dr. Donta Henry Tobacco Smoking/Tobacco Use Status: Current every day Tobacco Type: cigarettes Smoking cigarettes per day: 30 Alcohol Alcohol Intake: current Alcohol intake frequency: holidays/special occasions only Substance Use Substance use: Never Substance use type: does not use Vital Signs and Lab Results Vital Signs Most Recent Vital Signs in EMR: Most Recent Vital Signs Temp Pulse Resp BP Pulse Ox 36.6 C 90 16 122/80 96 12/27/23 14:02 12/27/23 14:02 12/27/23 14:02 12/27/23 14:02 12/27/23 14:02 Lab Results Blood Type / Crossmatch: No Data to Display Complete Blood Count: No Data to Display Complete Metabolic Panel: No Data to Display Liver Function Panel: No Data to Display Coagulation Panel: No Data to Display Cardiac Panel: No Data to Display Arterial Blood Gas: No Data to Display Venous Blood Gas: No Data to Display Pancreas Panel: No Data to Display Thyroid Panel: No Data to Display Infectious Disease: No Data to Display Blood Cultures: No Data to Display Toxicology Panel: No Data to Display Anesthesia Assessment and Plan Anesthesia History Personal History: PONV Family History: No Family History of Anesthesia Complications Exercise Tolerance Exercise Tolerance: Metabolic Equivalents>4 Pertinent Negatives Pertinent Negatives: No Symptoms of GERD Cardiac & Pulmonary Exam Cardiac Exam: Normal S1/S2 Heart Sounds Pulmonary Exam: Clear Bilateral Breath Sounds Implantable Cardiac Device Does patient have a Pacemaker or an ICD?: No Airway Exam Known Difficult Airway: No Mallampati Class: 2 Mouth Opening: Normal (> 3cm) Thyromental Distance: Greater than 3 cm Neck Range of Motion: Full ROM Neck Circumference: Normal Teeth Condition: Normal Dentition ASA Classification ASA Score: ASA 2 Emergency Case?: No NPO Status NPO Status: NPO Clears >2 hours, Solids >8 hours Anesthesia Plan Resuscitation Status: Full Code Anesthesia Technique: General Anesthesia Airway Planned: Natural Airway Monitors Used: Standard Monitors
[2023-12-27 14:23] VITALS: BMI 33.6
--- NOTE | 2023-12-27 15:02 | PDOC.DSDIS_ITS ---
Date of service: 12/27/23 Time of Service: 15:02 Discharge Plan Disposition Patient Disposition: Home Condition: Good Discharge Details Reason For Visit: Excision mass L wrist Attending Provider: Kannan Cruz Primary Care Provider: Shellie Ott Home Meds and New Rx's Prescriptions: New hydrocodone-acetaminophen 5-325 mg tablet 1 tab PO Q6H PRN (Reason: pain) Qty: 4 0RF acetaminophen 500 mg tablet 1,000 mg PO TID Qty: 90 0RF ibuprofen 600 mg tablet 600 mg PO TID PRN (Reason: pain) Qty: 90 0RF Continued albuterol sulfate 90 mcg/actuation HFA aerosol inhaler 1 - 2 puff IH Q4H PRN (Reason: shortness of breath or wheezing) Qty: 1 0RF Patient Comments: pt has not replaced this, out of medication Rx Instructions: Dispense brand of albuterol inhaler covered by patient's insurance cyclobenzaprine 10 mg tablet 10 mg PO DAILY PRN (Reason: muscle spasm) Qty: 30 0RF (DME) Oxygen Tank See Dose Instructions .ROUTE .MEDSUPPLY Qty: 1 0RF Dose Instruction: As directed Rx Instructions: 12L/min x 15 min triamcinolone acetonide 15 GM cream 80 gm Topical PRN Qty: 1 nystatin 100,000 unit/mL suspension 1 ml BC QID Qty: 60 0RF Rx Instructions: wish adn spit QID x 7 days if develop thrush rizatriptan [Maxalt-VOCATIONAL NURSE] 10 mg tablet,disintegrating See Rx Instructions PO .COMPLEX Qty: 20 0RF Dose Instruction: take 1 tab at onset of headache; if no relief may repeat 1 tab in 2hr; max = 3 tabs/day (24hr) PO Rx Instructions: take 1 tab at onset of headache; if no relief may repeat 1 tab in 2hr; max = 3 tabs/day (24hr) PO Probiotic 3 billion cell Capsule 1 cell PO PRN PRN ondansetron 4 mg tablet,disintegrating 4 mg PO Q8H PRNQty: 6 0RF Discontinued acetaminophen 500 mg tablet 1,000 mg PO Q8H PRN Qty: 90 0RF Rx Instructions: Take two tablets up to every 8 hours as needed for pain ibuprofen 600 mg tablet 600 mg PO TID PRN (Reason: pain) Qty: 60 0RF Discharge Instructions Additional Instructions: Wrist Cyst Excision Discharge Instructions Activity: You should keep the hand elevated as much as possible for the first few days. You may use the other fingers as tolerated but avoid trying to do too much too soon. You may perform light activities with the splint in place. Dressing/Cast: You may remove your dressings after 3 days. You may also shower and get the incision wet after 3 days. It does not need any dressing applied however you recycling operations manager place a Band-Aid over the incision if desired. Medications: - You should take Tylenol and Ibuprofen for baseline pain control. - You have Hydrocodone for breakthrough pain. - You may apply ice over the wrist. Follow-up: 7-10 days Referrals: Kannan Cruz MD [ [facility]AFF PHYSICIAN] - Activity:: Activity as Tolerated Remove Dressings/Wound Care:: 72 hours Shower/Bathe:: 72 hours Diet:: As Tolerated Discharge Orders Discharge Orders: Discharge Order (Routine); Ordered 12/27/23 Ordered By: Reynaldo Voss DS: Diagnosis Discharge Diagnosis (1) Mass of left wrist: Status: Acute
[2023-12-27] MEDS: ceFAZolin 2 GM/50 ML BAG IVPB (15:18)
[2023-12-27] MEDS: Lidocaine 1% Multi-Dose W/EPI 1/100,000 50 ML VIAL (15:30)
[2023-12-27 15:50] VITALS: BP 86/49; PULSE 82; RESP 16; TEMP 36.3; O2SAT 93
--- NOTE | 2023-12-27 16:08 | W.ANESPOSTOP ---
Postoperative Evaluation Date, Time and Location Date Performed: 12/27/23 Time Performed: 16:09 Patient Location: Day Surgery Unit Vital Signs Most Recent Imported Vital Signs: Most Recent Vital Signs Temp Pulse Resp BP Pulse Ox 36.3 C L 82 16 86/49 L 93 12/27/23 15:50 12/27/23 15:50 12/27/23 15:50 12/27/23 15:50 12/27/23 15:50 Pain Score Most Recent Pain Score: Most Recent Pain Score Pain Level 0 12/27/23 15:50 Assessment Mental Status: Awake (Alert & Oriented to Patient Baseline) Airway and Respiratory Function: Patent airway with normal (patient baseline) respiratory exam Cardiovascular Function: Hemodynamically Stable Hydration Status: Adequately Hydrated Nausea & Vomiting: No Nausea or Vomiting Pain: Pt. Denies Any Pain Peripheral Nerve Block: Patient did not receive a nerve block
[2023-12-27 16:21] VITALS: BP 118/78; PULSE 88; RESP 16; TEMP 36.3; O2SAT 94
--- NOTE | 2023-12-27 21:23 | ROE_ITS ---
Date of service: 12/27/23 Time of Service: 15:20 Operative Note Operative Note DATE OF PROCEDURE: 12/27/23 PRE-OP DIAGNOSIS: Ganglion Cyst - Left Dorsal Wrist POST-OP DIAGNOSIS: same (Dorsal Wrist Ganglion Cyst from DRUJ) PROCEDURE: Excision of dorsal wrist ganglion cyst - Left wrist SURGEON: Kannan Cruz ANESTHESIA TYPE: General:No Airway Refer to Anesthesia Record ESTIMATED BLOOD LOSS: 0 PATHOLOGY: none sent COMPLICATIONS: None Patient was transported to: PACU Patient's condition: stable Indications: Donta is a 58 year old female who I have seen for a left dorsal wrist mass, presumed ganglion cyst. It has continued to be bothersome despite some conservative options. Its size and interference with activities continues to cause problems. Therefore, I offered excision of the wrist cyst. I discussed the risks to include bleeding, infection, pain, stiffness, damage to nerve and vessels, recurrence. Despite these risks, she elects to proceed. Procedure Description: Donta was greeted in the preoperative holding area. Identity was confirmed and the correct site was identified and marked. Consent was reviewed the patient and signed. History and physical was updated. The patient to take not to the operating room placed in supine position. All bony prominences were well-p added. The arms and prepped with ChloraPrep and draped in a standard fashion. The surgical site was marked on the skin and injected with 1% lidocaine with epinephrine buffered with sodium bicarbonate. The skin was incised sharply. Deeper dissection was carried out with tenotomy scissors and careful attention to vascular branches in this area. The mass was identified and protected with dissection carried around. Once was fully identified it was deflated and the cyst stalk was followed down to the DRUJ. The cyst structure was resected and its origin from the DRUJ was opened with tenotomy scissors and rongeur. The wound was then thoroughly irrigated. There is no major arterial bleeding in any other persistent ooze was cauterized with the bipolar electrocautery. The wound was dry. The deep layer was reapproximated with a 3-0 Vicryl. The skin was closed with a running 4-0 Monocryl followed by skin glue, gauze, and Nicola wrap. At the end the case all counts were correct. The patient was awakened from anesthesia and taken to the PACU in stable condition. There were no noted complications.
== END 2023-12-27 16:38 | disposition home or self-care (01) ==
PROVIDERS: PCP Nurse Practitioner Family; Visit Provider Student in an Organized Health Care Education/Training Program
PROC: (CPT 25111; principal; 2023-12-27 15:00)
DX: M67.432 Ganglion, left wrist (principal); E78.00 Pure hypercholesterolemia, unspecified; G43.909 Migraine, unspecified, not intractable, without status migrainosus; Z79.899 Other long term (current) drug therapy
CPT/HCPCS: 25111; J0690; J1100; J2004; J2405; J2704